=== PATIENT | male | born 1975 | race Two or more races ===

== ENCOUNTER 2023-11-09 10:39 | Emergency (ER) | payer OTHER ==
[~2023-11-09] VITALS: Ht 185.4 cm; Wt 110.1 kg
[2023-11-09] MEDS: FUROSEMIDE 40 MG/4 ML VIAL IV ONE (12:16)
[2023-11-09 12:27] LABS: Basophils # (auto) 0 10 ^3/uL (0-0.2); Basophils % (auto) 0.7 % (0.0-2.0); Eosinophils # (auto) 0.2 10 ^3/uL (0-0.8); Eosinophils % (auto) 2.6 % (0.0-7.0); Hematocrit 43.4 % (41.0-53.0); Hemoglobin 15.3 g/dL (13.5-17.5); Lymphocytes # (auto) 1.1 10 ^3/uL (0.4-5.4); Lymphocytes % (auto) 17.7 % (10.0-50.0); Mean Corpuscular Hemoglobin 31.6 pg (28.0-32.0); Mean Corpuscular Hgb Conc. 35.3 g/dL (32.0-36.0); Mean Corpuscular Volume 89.5 fL (80.0-100.0); Monocytes # (auto) 0.4 10 ^3/uL (0-1.3); Monocytes % (auto) 6.9 % (0.0-12.0); Neutrophils # (auto) 4.7 10 ^3/uL (1.6-8.6); Neutrophils % (auto) 72.1 % (37.0-80.0); Nucleated Red Blood Cells % 0.1 %; Red Blood Cells 4.85 10^6/uL (4.5-5.90); Red Cell Distribution Width 13.5 % (11.8-14.3); White Blood Cell 6.5 10^3/uL (4.4-10.8)
[2023-11-09 12:30] LABS: Chloride 107 mmol/L (98-107); Potassium 3.7 mmol/L (3.5-5.1); Sodium 141 mmol/L (136-145)
[2023-11-09 12:31] LABS: Anion Gap 7 (5-15); Carbon Dioxide 27 mmol/L (20-30)
[2023-11-09 12:32] LABS: Calcium 9.4 mg/dL (8.5-10.1)
[2023-11-09 12:36] LABS: Glucose 144 mg/dL (74-106)
[2023-11-09 12:37] LABS: BUN/Creatinine Ratio 10.1 (10.0-20.0); Blood Urea Nitrogen 9 mg/dL (9-23)
[2023-11-09 12:44] LABS: Urine Bacteria NONE SEEN /hpf (None Seen); Urine Blood Negative /uL (Negative); Urine Clarity Clear (Clear); Urine Color Colorless (Yellow); Urine Protein, UAD Negative (Negative); Urine Specific Gravity 1.009 (1.001-1.035); Urine Urobilinogen Normal (Negative); Urine WBC <1 /hpf (0 - 3); Urine pH 6.5 (5.0-8.0)
[2023-11-09 13:20] LABS: Erythrocyte Sedimentation Rate 2 mm/hr (0-20)
[2023-11-09] MEDS ORDERED: FURO20TA3 PO (14:26)
[2023-11-09 14:50] VITALS: BP 128/77; PULSE 94; RESP 18; TEMP 98.4; O2SAT 98
== END 2023-11-09 14:51 | disposition home or self-care (01) ==
LOC: ER 10:39
DX: R60.0 Localized edema (principal); I82.403 Acute embolism and thrombosis of unspecified deep veins of lower extremity, bilateral; K21.9 Gastro-esophageal reflux disease without esophagitis; I10 Essential (primary) hypertension; E78.5 Hyperlipidemia, unspecified
CPT/HCPCS: 36415; 80048; 81001; 83880; 84484; 85025; 85652; 86141; 93005; 93970; 96374; 99285; J1940